=== PATIENT | male | born 1950 | race Caucasian/White ===

== ENCOUNTER → 2016-09-13 | Outpatient (CLI) | payer BC | END | disposition home or self-care (01) | LOC: LAB.O 10:50 | PROVIDERS: ATTEND Surgery | DX: R10.11 Right upper quadrant pain (principal) ==

== ENCOUNTER → 2016-09-14 | Outpatient (CLI) | payer BC ==
--- NOTE | 2016-09-14 10:15 | US ---
EXAM DESCRIPTION: Abdomen,Complete CLINICAL HISTORY: RUQ PAIN COMPARISON: None Available. TECHNIQUE: Complete abdominal ultrasound was performed. Grayscale images were saved to the patient's medical record. FINDINGS: The liver is echogenic, but normal in size. There is no focal hepatic mass. Cholelithiasis noted. Negative for cholecystitis. Common bile duct measures 4 mm in diameter. The pancreas and the spleen are unremarkable. Tiny cortical exophytic cyst noted within the left kidney measuring 9 mm in diameter. Echogenic 2 mm left upper pole nonobstructing renal stone. The IVC and the proximal aorta are unremarkable. IMPRESSION: Cholelithiasis without evidence of cholecystitis. 3 mm left upper pole nonobstructing renal stone. Fatty infiltration of the liver. Electronically signed by: Abel Barajas MD 09/14/2016 10:14 AM POLYSOMNOGRAPH TECH
== END | disposition home or self-care (01) ==
LOC: US 08:14
PROVIDERS: ATTEND Surgery
DX: K80.20 Calculus of gallbladder without cholecystitis without obstruction (principal); N20.0 Calculus of kidney; K76.0 Fatty (change of) liver, not elsewhere classified

== ENCOUNTER 2016-09-21 05:15 | Day surgery (SDC) | payer BC ==
[2016-09-21] MEDS ORDERED: NEOSTIGMINE METHYLSULFATE 1 MG/ML ML IV ONE (07:00)
[2016-09-21] MEDS ORDERED: LIDOCAINE 1% 10 ML VIAL INJ ONE (07:00)
[2016-09-21] MEDS ORDERED: METOCLOPRAMIDE HCL INJ 10 MG/2 ML VIAL ONE (07:00)
[2016-09-21] MEDS ORDERED: PROPOFOL 200 MG/20 ML VIAL IV ONE (07:00)
[2016-09-21] MEDS ORDERED: ATROPINE SULFATE 0.4 MG/ML 1ML VIAL ONE (07:00)
[2016-09-21] MEDS ORDERED: LACTATED RINGERS 1,000 ML ONE ×2 (07:04→07:51)
[2016-09-21] MEDS ORDERED: SODIUM CHL 0.9% 100ML MINI-BAG 100 ML IVPB ONE (07:04)
[2016-09-21] MEDS ORDERED: ceFAZolin SODIUM 1 GM VIAL ONE (07:05)
[2016-09-21] MEDS ORDERED: HEPARIN SODIUM (PORCINE) 10,000 UNITS/ML VIAL ONE (07:25)
[2016-09-21] MEDS ORDERED: BUPIVACAINE 0.25% W/EPI 50 ML VIAL INJ ONE (07:25)
[2016-09-21] MEDS ORDERED: LIDOCAINE 2 % GEL 5 ML TUBE TOP ONE (07:50)
[2016-09-21] MEDS ORDERED: fentaNYL CITRATE INJ 50 MCG/ML AMP ONE (07:50)
[2016-09-21] MEDS ORDERED: ROCURONIUM BROMIDE 10 MG/ML VIAL ONE (07:51)
[2016-09-21] MEDS: MORPHINE SULFATE INJ 10 MG/ML VIAL ONE ×3 (10:44→10:54)
[2016-09-21] MEDS ORDERED: KETOROLAC TROMETHAMINE INJ 30 MG/ML VIAL ONE (10:47)
--- NOTE | 2016-09-21 10:51 | OP ---
DATE OF PROCEDURE: 09/21/16 PREOPERATIVE DIAGNOSIS: 1. Symptomatic cholelithiasis. 2. Fatty infiltration of the liver. POSTOPERATIVE DIAGNOSIS: 1. Symptomatic cholelithiasis. 2. Chronic cholecystitis. 3. Fatty infiltration of the liver. PROCEDURE: 1. Laparoscopic cholecystectomy with intraoperative cholangiography using fluoroscopy. 2. Wedge biopsy, right lobe of the liver. SURGEON: Abimael De Leon MD. ACCOUNT SERVICES MANAGER: None. ANESTHESIA: Local infiltration of 0.25% Marcaine with epinephrine and general endotracheal anesthesia. INDICATION: The patient is a 66-year-old man who had one major episode of right upper quadrant pain with radiation to the back and nausea after a fatty meal. He underwent a sonogram which revealed gallstones which he knew he had. His bile duct was noted to be normal and after evaluation by his primary care physician, Dr. Palomares, for a cardiac risk evaluation, he was brought to the [facility] today for cholecystectomy intraoperative cholangiography and wedge biopsy of the liver. FINDINGS: The fatty infiltration of the liver appeared to be mild, however, pathology is pending. There were multiple stones. Intraoperative cholangiography revealed free flow into the duodenum with no filling defects or strictures noted and a small bile duct. No other significant pathology was identified other than a small amount of adhesions in the left lower quadrant. DESCRIPTION OF PROCEDURE: After adequate general endotracheal anesthesia was obtained, the patient was prepped and draped in the usual sterile manner. Surgical time-out was taken. The supraumbilical area was infiltrated with local anesthesia. A vertical incision was made with a sharp knife. Dissection was carried down through the skin and subcutaneous tissue to the midline fascia. Traction sutures were placed on either side of the midline. A small incision was made in the midline fascia and the peritoneum was opened bluntly. Terrance trocar was introduced under direct vision into the abdominal cavity and fixed in place with the 20 mL balloon. CO2 was then insufflated until a pressure of 12 mmHg was reached and the abdomen was tympanitic in all four quadrants. When this was done, the laparoscope was introduced. The abdomen was inspected with the previously noted findings. The patient was then placed in reverse Trendelenburg position, turned to the left side. The upper abdominal ports were placed under direct vision. The gallbladder was grasped, retracted anteriorly and laterally. The neck of the gallbladder was retracted laterally. The triangle of Calot was then explored bluntly with the cystic duct and cystic artery identified and isolated. The cystic duct was hemoclipped once proximally. The cystic artery was hemoclipped twice proximally and once distally. A small incision was made in the cystic duct. The cholangiogram catheter was introduced through a separate stab wound in the right upper quadrant, introduced into the cystic duct and clipped in place. Cholangiograms were then taken using fluoroscopy which revealed free flow into the duodenum with no filling defects or strictures noted. When this was done, the cystic duct catheter was removed. The cystic duct was hemoclipped three times distally and divided between the hemoclips. The cystic artery was divided. The gallbladder was then dissected free from the gallbladder bed of the liver. A small amount of leakage of bile from the gallbladder was present, so when it was removed from the gallbladder bed of the liver, it was placed in an EndoCatch bag and removed from the supraumbilical port site in the usual manner under direct vision. When this was done, the subhepatic space and subphrenic space were irrigated copiously with saline. The effluent was noted to be clear. There was some oozing in the gallbladder bed of the liver which was controlled with electrocautery. When this was done, a wedge biopsy of the liver was performed using sharp scissors. The specimen was sent for pathologic evaluation. Hemostasis was obtained with electrocautery with the cautery turned up to 50. When this was done, again, the right upper quadrant was inspected. Adequate hemostasis was noted. The subhepatic space and subphrenic space were irrigated copiously with saline. The effluent was noted to be clear. Again, there was no bleeding in the felipe hepatis, no bile leak in the felipe hepatis, and no bleeding from the biopsy site or from the gallbladder bed of the liver. At this point, the upper abdominal ports were removed under direct vision and good hemostasis was noted from the port sites. At this point , the CO2, the laparoscope and the supraumbilical port were removed. The supraumbilical port site fascia was approximated with a single [id number] suture of 0 Vicryl. Subcutaneous tissue was irrigated with saline. Skin edges were approximated with 4-0 Vicryl subcuticular sutures, benzoin and Steri- Strips. Sterile dressings were applied. The patient was awakened and taken to the Recovery Room in good and stable condition. Estimated blood loss was approximately 50 to 75 mL. All sponge, needle and instrument counts were correct. #[id number] [facility]
[2016-09-21] MEDS ORDERED: ENOXAPARIN SODIUM 40 MG/0.4 ML SYG SUBCU ONE (10:53)
[2016-09-21] MEDS: fentaNYL CITRATE INJ 50 MCG/ML AMP ONE ×4 (11:00→11:21)
[2016-09-21] MEDS ORDERED: HYDROcodone 5MG/APAP 325MG 1 EA TAB ONE (12:01)
[2016-09-21 13:48] VITALS: BP 107/71; TEMP 97.7; O2SAT 97
== END 2016-09-21 12:45 | disposition home or self-care (01) ==
LOC: AMB 05:15
PROVIDERS: ATTEND Surgery
DX: K80.10 Calculus of gallbladder with chronic cholecystitis without obstruction (principal); I10 Essential (primary) hypertension; E78.5 Hyperlipidemia, unspecified; Z96.653 Presence of artificial knee joint, bilateral; Z88.8 Allergy status to other drugs, medicaments and biological substances; Z79.899 Other long term (current) drug therapy

== ENCOUNTER → 2018-08-30 | Outpatient (CLI) | payer BC | LOC: GMAH 10:56 | PROVIDERS: ATTEND Family Medicine | DX: Z00.01 Encounter for general adult medical examination with abnormal findings (principal); Z12.5 Encounter for screening for malignant neoplasm of prostate ==

== ENCOUNTER → 2019-11-10 | Outpatient (CLI) | payer MEDICARE, BC ==
--- NOTE | 2019-11-10 13:00 | RAD ---
EXAM DESCRIPTION: Abdomen Flat Upright CLINICAL HISTORY: 69 years Male, RIGHT LOWER QUADRANT PAIN COMPARISON: None. FINDINGS: Nonobstructive bowel gas pattern. Cholecystectomy clips. No urinary tract calculus is seen. Degenerative changes in the thoracolumbar spine at multiple levels including mild levoscoliosis. IMPRESSION: Negative exam. If symptoms persist or worsen, CT is suggested. Electronically signed by: Tano Way MD 11/10/2019 12:58 PM CDT
== END ==
LOC: LAB.O 12:10
PROVIDERS: ATTEND Surgery
DX: R10.30 Lower abdominal pain, unspecified (principal)

== ENCOUNTER 2020-03-27 11:13 | Outpatient (CLI) | payer MEDICARE, BC ==
[2020-03-27] MEDS ORDERED: DEXAMETHASONE INJ 10 MG/ML VIAL ONE (11:27)
[2020-03-27] MEDS ORDERED: DEXAMETHASONE INJ 10 MG/ML VIAL IM ONE (11:45)
--- NOTE | 2020-03-27 13:20 | CT ---
Sex: Male. : 1950. TECHNIQUE: CT angiography of the chest was performed with axial dataset after bolus intravenous injection of intravenous contrast including computer-generated multiplanar MIP reformations. Total Dose Length Product: 920. This exam was performed according to our departmental dose-optimization program, which includes automated exposure control, adjustment of the mA and/or kV according to patient size and/or use of iterative reconstruction technique. Comparison studies: Chest x-ray January 27, 2014. Clinical history: covid pneumonia. CT Chest: Findings: Pulmonary arteries: Main, right, left pulmonary arteries are opacified without evidence for large, central or saddle embolus. The branching segmental arteries are normal. No evidence for acute pulmonary embolism. Cardiac: Heart size: Normal. Pericardial effusion: None. Right ventricular strain: None. Left atrial clot: None. Aorta: Normal. Lungs: No acute airspace consolidation is seen. No mass. Tracheobronchial tree is clear. Streaky artifact is seen from motion or technical factors perhaps related to pitch. Pleura: No effusion. Mediastinum: No mass. Perlita: No mass. Musculoskeletal: There are multiple fracture deformities on the left side involving the clavicle and ribs. Upper abdomen: Cholecystectomy. Hepatic steatosis. Indeterminate 14 mm mass projecting from the posterior left kidney on series 2 image 131 has a density of 48 HU and this represents a potential solid neoplasm. Recommend follow-up CT renal protocol or ultrasound for further evaluation. There is a 6 mm low attenuating density in the right lobe of the liver on series 2 image 86. This is unchanged comparing to June 18, 2007 and is likely a simple cyst or hemangioma. IMPRESSION: 1. There is no evidence for acute pulmonary embolism. 2. No acute pulmonary consolidation or pleural effusion. 3. Chronic healed left thoracic skeletal fractures. 4. Indeterminate 14 mm left renal lesion. Electronically signed by: Santos Marrero MD 03/27/2020 1:18 PM CDT
== END 2020-03-27 13:02 | disposition home or self-care (01) ==
LOC: LAB.O 11:13
PROVIDERS: ATTEND Nurse Practitioner Family
DX: J98.8 Other specified respiratory disorders (principal); N28.9 Disorder of kidney and ureter, unspecified; Z87.311 Personal history of (healed) other pathological fracture
CPT/HCPCS: 36415; 71275; 80053; 82550; 82728; 83615; 83735; 83880; 84484; 85025; 85379; 85384; 85730; 86140; 96372; J1100

== ENCOUNTER → 2020-03-29 | Outpatient (CLI) | payer MEDICARE, BC | LOC: GMA MATASK 12:30 | PROVIDERS: ATTEND Family Medicine | DX: R06.02 Shortness of breath (principal) ==

== ENCOUNTER → 2020-05-20 | Outpatient (CLI) | payer MEDICARE, BC | LOC: GMAM 11:03 | PROVIDERS: ATTEND Family Medicine | DX: Z12.5 Encounter for screening for malignant neoplasm of prostate (principal); R53.83 Other fatigue; E55.9 Vitamin D deficiency, unspecified; I10 Essential (primary) hypertension; E78.2 Mixed hyperlipidemia | CPT/HCPCS: 82306; 84403; 84439; 84443; G0103 ==

== ENCOUNTER → 2020-05-25 | Outpatient (CLI) | payer MEDICARE, BC ==
--- NOTE | 2020-05-25 15:28 | CT ---
EXAM DESCRIPTION: Abdomen w/wo Contrast CLINICAL HISTORY: 69 years Male, disorder of kidney and ureter COMPARISON: CTA chest 03/27/2020 TECHNIQUE: CT of the abdomen acquired without and with IV contrast material. Coronal and sagittal reformations provided. This exam was performed according to our departmental dose-optimization program, which includes automated exposure control, adjustment of the mA and/or kV according to patient size and/or use of iterative reconstruction technique. FINDINGS: Lung bases: Clear. Solid Organs: Mild hypoattenuation of the liver parenchyma on noncontrast series. Punctate 2 mm calcification inferior pole right kidney. No stone in the proximal ureters. No hydronephroureter or perinephric screening. Unremarkable spleen, pancreas, adrenal glands. Gallbladder surgically absent without biliary ductal dilatation. Fluid attenuating lesion in the right hepatic lobe probably representing hemangioma versus. Bilateral cortical renal cysts. GI tract: Unremarkable stomach. No obstruction of visualized bowel. Visualized appendix appears normal. Mild colonic stool. Vascular: Mild atherosclerosis. Musculoskeletal and soft tissues: No acute fracture or aggressive appearing osseous lesion. Soft tissues unremarkable. Other: None. IMPRESSION: 1. Nonobstructing punctate left renal stone. 2. Other findings as above. Electronically signed by: Scott Beth MD 05/25/2020 3:27 PM [employer]ER
== END ==
LOC: CT 08:00
PROVIDERS: ATTEND Family Medicine
DX: N28.89 Other specified disorders of kidney and ureter (principal); N20.0 Calculus of kidney

== ENCOUNTER → 2020-08-02 | Outpatient (CLI) | payer MEDICARE, BC | LOC: GMAM 11:57 | PROVIDERS: ATTEND Family Medicine | DX: E29.1 Testicular hypofunction (principal); I10 Essential (primary) hypertension ==